=== PATIENT | female | born 1960 | race Caucasian/White ===

== ENCOUNTER 2016-09-28 14:57 | Emergency (ER) | payer OTHER ==
[~2016-09-28] VITALS: Ht 157.5 cm; Wt 76.5 kg
[~2016-09-28 14:57] MED LIST: CIPR500T4 PO; FLUO20CA38 PO; LORA-441 PO; METF500T4 PO; METO25TA7 PO; NAPR-260 PO; ONDA-43 PO; PHEN-538 PO; TRAM50TA2 PO
[2016-09-28 14:58] VITALS: Ht 157.5 cm; Wt 76.5 kg
--- NOTE | 2016-09-28 15:30 | ERD ---
ER Documentation Chief Complaint Date/Time DATE: 09/28/16 TIME: 15:24 Chief Complaint LT LEG PAIN X 1 DAY , NO TRAUMA HPI This 56-year-old female presents to emergency department today with 1 day history of left low back and leg the pain. Patient reports history of sciatica which has been controlled for the last 4 weeks. Patient reports sudden onset of pain while shopping in the market. Patient denies any increased activity states she had taken a long walk 2 days ago states that there was a lot of downhill walking. Patient also reports a 5 pound weight gain. Patient states that she is a diabetic her weight goes up and down. She denies any injury, denies difficulty with bowel or bladder, dysuria, hematuria, nausea vomiting fever chills patient states pain is on the lateral aspect of thigh radiating down to the ankle. Patient has tried Tylenol and Motrin last night with little relief of symptoms. ROS All systems reviewed and are negative except as per history of present illness. Medications Home Meds Active Scripts Diazepam* (Valium*) 5 Mg Tablet, 5 MG PO Q8 for myopathy , #10 TAB Prov:MATT,BEATRICE 09/28/16 Acetaminophen* (Tylenol*) 325 Mg Tablet, 1 TAB PO Q6 Y for take with ultram, # 20 TAB Prov:MATT,BEATRICE 09/28/16 Tramadol HCl (Tramadol HCl) 50 Mg Tablet, 50 MG PO Q6 Y for PAIN, #20 TAB Prov:MATT,BEATRICE 09/28/16 Naproxen* (Naprosyn*) 500 Mg Tablet, 500 MG PO BID Y for PAIN AND/OR INFLAMMATION, #30 TAB Prov:PATRICK DUNN PA-C 04/17/16 Tramadol HCl (Tramadol HCl) 50 Mg Tablet, 50 MG PO Q4 Y for PAIN, #20 TAB Prov:PATRICK DUNN PA-C 04/17/16 Tramadol HCl (Tramadol HCl) 50 Mg Tab, 50 MG PO Q6H Y for SEVERE PAIN LEVEL 7-10 , #30 TAB Prov:TRACE DANG NP 01/20/15 Phenazopyridine Hcl* (Pyridium*) 200 Mg Tab, 200 MG PO TID for DYS, #6 TAB Prov:TRACE DANG NP 01/20/15 Ciprofloxacin Hcl* (Ciprofloxacin Hcl*) 500 Mg Tablet, 500 MG PO BID for 7 Days , TAB Prov:TRACE DANG VASU Rosario NP 01/20/15 Reported Medications Ondansetron Hcl* (Zofran*) 4 Mg Tab, 4 MG PO Q4H Y for NAUSEA AND OR VOMITING, TAB 12/04/13 Fluoxetine Hcl* (Prozac*) 20 Mg Capsule, 60 MG PO DAILY, CAP 12/04/13 Lorazepam* (Ativan*) 0.5 Mg Tablet, 1 MG PO Q8 Y for ANXIETY 12/04/13 Metformin* (Glucophage*) 500 Mg Tab, 500 MG PO BID, TAB 12/04/13 Metoprolol Succinate* (Toprol XL*) 25 Mg Tab.sr.24h, 25 MG PO DAILY 02/07/13 Allergies Allergies: Coded Allergies: Penicillins (Verified Allergy, Mild, UNKNOWN, 01/20/15) PMhx/Soc Anesthesia Reaction: No Hx Neurological Disorder: Yes (MIGRAINES) Hx Respiratory Disorders: No Hx Cardiac Disorders: Yes (HTN) Hx Psychiatric Problems: Yes (DEPRESSION) Hx Miscellaneous Medical Probl: Yes (DM) Hx Alcohol Use: No Hx Substance Use: No Hx Tobacco Use: No Physical Exam Vitals Vital Signs Date Time Temp Pulse Resp B/P Pulse Ox O2 Delivery O2 Flow Rate FiO2 09/28/16 14:58 97.6 86 16 151/77 98 Vitals stable, triage notes reviewed Physical Exam Const: No acute distress Head: Eyes: Normal Conjunctiva ENT: Normal External Ears, Nose and Mouth. Neck: Resp: Cardio: Regular rate and rhythm, no murmurs Abd: Soft, non tender, non distended. Normal bowel sounds Skin: Back: No midline tenderness, no CVA tenderness, left gluteal tenderness Ext: Lower Extremity - bilateral: Skin: No laceration Compartments: Soft Motor: Limited range of motion left leg with standing straight leg lift. Ambulate with a limp Sensation: Intact to light touch anterior, posterior, and lateral surfaces Bones: Nontender pelvis/knee/proximal tibia/ malleoli/foot Joints: No effusion or laxity Pulses/Perfusion: 2+ DP, Capillary refill < 2 seconds Neur: Awake and alert Psych: Normal Mood and Affect Procedures/MDM This pleasant 56-year-old female presents to emergency department with sudden onset of left leg pain with history of sciatica. Patient reports symptoms have been controlled over the last 4 weeks. That sudden onset of pain yesterday [place] market while shopping. Patient reports 5 pound weight gain, patient states she started walking went for a long walk 2 days prior to exacerbation of sciatica. She is tried nonsteroidal anti-inflammatories in the past with little relief of symptoms states she said he has used Naprosyn without relief. She is tried Advil and Tylenol last night. Also topical analgesia, icy hot without relief of symptoms. Acute spinal injury is not suspected, fracture, herniated disc or abscess. Likely degenerative changes suspected as chronic, x-ray will not be performed today. I feel patient is appropriate for outpatient management with primary care physician and reevaluation of chronic back pain. Patient will be sent home with a short dose of Ultram, instructed to take with 1 Tylenol every 6 hours, Valium for myopathy 1 every 8 hours. Return to emergency room for difficulty ambulating, loss of bowel or bladder, increased pain not responding to current treatment. I feel the patient is stable for discharge at this time. I have discussed results, examination findings, the treatment plan with the patient and family present prior to discharge. Indications for emergent reevaluation, side effects of medication were also discussed. All questions were answered. Patient verbalizes understanding and agrees with plan of care. Departure Diagnosis: Primary Impression: Pain of left leg Additional Impression: History of sciatica Condition: Good Patient Instructions: Back Pain W/ Sciatica, Understanding Sciatica Referrals: [facility] Additional Instructions: Thank you for for coming to [facility] for your care today. Please ask your nurse or provider if you have questions about your care today and do not leave until all your questions have been answered. Please use any medications given as directed and follow-up with your doctor (or the doctor you were referred to) in the next 2-3 days. If you do not have a primary care doctor you may follow up at the [facility] [place] (listed below). You may also use motrin and tylenol as needed for fever and/or pain unless instructed otherwise by your provider or nurse. Indications for more urgent follow-up have been discussed, but you may return to the Emergency Department at ANY time for any worrisome or worsening symptoms. If you have abdominal pain, please know that no test or exam you received is perfect and you should follow up within 8 hours for continued pain. If you had any imaging studies today, such as an X-Ray or CT Scan, these studies will be reviewed later by a radiologist. You will be called if there are important findings that were not identified today, so make sure the contact information you provided at registration is correct. If you received any narcotic pain control medicine today, such as Vicodin, Morphine or Dilaudid, your coordination and judgment may be affected for a number of hours. Please do not drive or operate heavy machinery, and you may want someone to assist you at home. If you were given a prescription for narcotic medication, be aware that it is very addictive- use sparingly and only if necessary. BEATRICE GUTIERREZ Sep 28, 2016 15:30
[2016-09-28] MEDS ORDERED: TRAM50TA2 PO (15:31)
[2016-09-28] MEDS ORDERED: ACET325T33 PO (15:32)
[2016-09-28] MEDS ORDERED: DIAZ-90 PO (15:32)
== END 2016-09-28 15:35 | disposition home or self-care (01) ==
LOC: E/R 14:57
DX: M79.605 Pain in left leg (principal); M54.32 Sciatica, left side; I10 Essential (primary) hypertension; E11.9 Type 2 diabetes mellitus without complications; Z79.84 Long term (current) use of oral hypoglycemic drugs
CPT/HCPCS: 99284